=== PATIENT | male | born 1980 | race Caucasian/White ===

== ENCOUNTER 2018-10-06 09:06 | Outpatient (CLI) | payer BC ==
--- NOTE | 2018-10-06 13:26 | RAD ---
3 VIEW LEFT KNEE: Date: 10/06/18 INDICATION: Pain. FINDINGS: There is no fracture or dislocation. There is enthesophyte formation at the superior aspect of the pa tella. Minimal osteophytosis and joint space narrowing present at the medial compartment. IMPRESSION: 1. No acute osseous abnormality. 2. Mild osteoarthritis. POS: C
== END 2018-10-06 09:07 | disposition home or self-care (01) ==
LOC: BICRAD 09:06
PROVIDERS: ATTEND Nurse Practitioner Family
DX: M25.562 Pain in left knee (principal); M17.12 Unilateral primary osteoarthritis, left knee

== ENCOUNTER 2018-12-05 09:59 | Outpatient (CLI) | payer BC ==
--- NOTE | 2018-12-05 12:47 | MRI ---
MRI LEFT KNEE PERFORMED WITHOUT CONTRAST ENHANCEMENT: HISTORY: Medial knee pain for the last couple months. FINDINGS: Anterior as well as posterior cruciate ligaments are intact. The lateral meniscus is normal in shape and appearance. There is some increased signal change within the medial meniscus. There is some mild edema change in the meniscocapsular junction of the posteri or horn. I do not see any meniscocapsular separation, and I do not see a definitive articular surfac e tear. There are subchondral bony changes of the medial femoral condyle with fairly pronounced yanet a. These changes are suggestive of some developing osteonecrosis, probably on the basis of a subchon dral insufficiency-type fracture. The medial and lateral collateral ligaments and the iliotibial band regions are unremarkable. The patellar articular cartilage is intact. Medial and lateral patellar retinaculum and quadriceps a nd patellar tendons are normal. IMPRESSION: Fairly pronounced marrow edema changes of the medial femoral condyle. This appears to be related to a subchondral insufficiency type fracture. No definite signs of an underlying meniscal tear. There is some mild edema change within the meniscocapsular junction of the posterior horn, which may just b e on the basis of altered walking dynamics related to the changes of the medial femoral condyle. POS: [facility]
== END 2018-12-05 10:00 | disposition home or self-care (01) ==
LOC: BICMRI 09:59
PROVIDERS: ATTEND Orthopaedic Surgery
DX: M23.92 Unspecified internal derangement of left knee (principal)